=== PATIENT | female | born 1990 | race Caucasian/White ===

== ENCOUNTER 2016-05-05 23:10 | Inpatient (IN) | payer MEDICAID ==
[~2016-05-05] VITALS: Ht 175.3 cm; Wt 115.5 kg
[2016-05-06] MEDS ORDERED: HALOPERIDOL 5 MG TAB PO PRN (02:10)
[2016-05-06] MEDS ORDERED: HALOPERIDOL 5 MG/ML VIAL IM PRN (02:10)
[2016-05-06] MEDS ORDERED: MAG HYDROX 30 ML UDC PO PRN (02:10)
[2016-05-06] MEDS ORDERED: ALU/MAG/SIM 30 ML UDC PO PRN (02:10)
[2016-05-06] MEDS ORDERED: ACETAMINOPHEN 325 MG TAB PO PRN (02:10)
[2016-05-06] MEDS ORDERED: TRAZODONE 50 MG TAB PO PRN (02:10)
[2016-05-06] MEDS ORDERED: LORAZEPAM 2 MG/ML VIAL IM PRN (02:10)
[2016-05-06] MEDS ORDERED: DIPHENHYDRAMINE 50 MG/ML VIAL IM PRN (02:10)
[2016-05-06] MEDS ORDERED: LORAZEPAM 2 MG TAB PO PRN (02:10)
[2016-05-06] MEDS ORDERED: DIPHENHYDRAMINE 50 MG CAP PO PRN (02:10)
[2016-05-06 02:51] VITALS: BP_SYST 120; RESP 18; TEMP 98.5
[2016-05-06 02:52] VITALS: Ht 175.3 cm; Wt 115.5 kg
[2016-05-06] MEDS ORDERED: *PINK BRACELET XX ONE (04:05)
[2016-05-06] MEDS: [UNRECOGNIZED DRUG - OTHER] XX SCH ×2 (08:00→20:00)
[2016-05-06] MEDS: NICOTINE 21 MG/24 HR TRANSDERM SCH (11:25)
[2016-05-06] MEDS: MULTIVITS/MINERALS (THERAGRAN M) TAB PO SCH (11:25)
[2016-05-06] MEDS: FLUOXETINE 20 MG CAP PO SCH (11:25)
[2016-05-06 17:14] VITALS: BP_SYST 129; RESP 18; TEMP 98.8
[2016-05-06 19:06] VITALS: BP_SYST 136; RESP 18; TEMP 98.6
[2016-05-06] MEDS ORDERED: BUPROPION XL 150 MG TAB PO SCH (21:00)
[2016-05-07] MEDS: [UNRECOGNIZED DRUG - OTHER] XX SCH (08:00)
[2016-05-07 08:42] VITALS: BP_SYST 124; RESP 18; TEMP 98.6
[2016-05-07] MEDS: MULTIVITS/MINERALS (THERAGRAN M) TAB PO SCH (09:00)
[2016-05-07] MEDS: NICOTINE 21 MG/24 HR TRANSDERM SCH (09:00)
[2016-05-07] MEDS: FLUOXETINE 20 MG CAP PO SCH (09:29)
== END 2016-05-07 13:15 | disposition home or self-care (01) | DRG 885 ==
LOC: ENRESERVTM → ENRESERVDT → ER 23:10 → EMR 05-06 01:21 → PSY 05-06 01:58
PROVIDERS: ADMIT Psychiatry & Neurology Psychiatry; ATTEND Psychiatry & Neurology Psychiatry
DX: F33.2 Major depressive disorder, recurrent severe without psychotic features (principal); I49.5 Sick sinus syndrome; F43.22 Adjustment disorder with anxiety
CPT/HCPCS: 36415; 80053; 80307; 80320; 80329; 81001; 85025; 87088